=== PATIENT | female | born 1950 | race Caucasian/White ===

== ENCOUNTER 2022-09-21 22:53 | Emergency (ER) | payer MEDICARE, OTHER ==
--- NOTE | 2022-09-21 23:20 | ED Physician Documentation ---
PD HPI ABD PAIN - Stated complaint Stated Complaint: ABD PX - Chief complaint Chief Complaint: Abd Pain - History obtained from History obtained from: Patient - Additional information Additional information: HPI from patient. Patient complains of abdominal pain, predominantly periumbilical and to the left of the umbilicus. Pain began approximately 3 hours prior to arrival while she was lying in bed awake at home. Pain is constant without ameliorating factors. The pain is exacerbated with palpation. She was driven by spouse to the emergency department, and had an episode of nausea and vomiting on route, but at the time of this evaluation, she denies any nausea. She denies history of similar abdominal pain. Review of Systems Constitutional: denies: Fever GI: reports: Abdominal Pain, Nausea, Vomiting, Diarrhea (Chronic/recurrent (has seen two gastroenterologists for this problem already)). denies: Constipation, Hematemesis, Bloody / black stool : denies: Dysuria, Frequency, Hematuria PD PAST MEDICAL HISTORY - Past Medical History Past Medical History: Yes GI: GERD Other Past Medical History: restless leg syndrome/insomnia - Past Surgical History Past Surgical History: Yes Ortho: Hip replacement - Present Medications Home Medications: Ambulatory Orders Medication Instructions Recorded Confirmed Gabapentin [Neurontin] 400 mg PO BID 09/21/22 09/21/22 Omeprazole 20 mg PO DAILY 09/21/22 09/21/22 HYDROcod/ACETAM 5/325 [Coggon 5/325] 1 - 2 tablet PO Q6H PRN #14 tablet 09/22/22 Ondansetron Odt [Zofran Odt] 4 mg TL Q6H PRN #10 tablet 09/22/22 - Allergies Allergies/Adverse Reactions: Allergies Allergy/AdvReac Type Severity Reaction Status Date / Time Penicillins Allergy Hives Verified 09/21/22 23:09 Sulfa (Sulfonamide Allergy Hives Verified 09/21/22 23:09 Antibiotics) meloxicam AdvReac Unknown Verified 09/21/22 23:09 PD ED PE NORMAL - Vitals Vital signs reviewed: Yes - General General: Alert and oriented X 3, No acute distress, Well developed/nourished - HEENT HEENT: Moist mucous membranes - Neck Neck: Supple, no meningeal sign - Cardiac Cardiac: RRR, No murmur - Respiratory Respiratory: No respiratory distress, Clear bilaterally - Abdomen Abdomen: Normal bowel sounds, Soft, Non distended - Back Back: No CVA TTP - Derm Derm: No rash PD ED PE EXPANDED - Abdomen Abdomen: Tender to palpation, Epigastric, Periumbilical, Left abdomen. No: Rebound, Guarding Results - Vitals Vitals: Vital Signs - 24 hr 09/21/22 09/22/22 09/22/22 23:10 00:34 01:00 Temperature 37.1 C Heart Rate 83 77 71 Respiratory 16 16 16 Rate Blood Pressure 150/69 H 136/59 H 129/65 O2 Saturation 99 97 95 09/22/22 01:50 Temperature 36.9 C Heart Rate 70 Respiratory 15 Rate Blood Pressure 130/60 O2 Saturation 100 Oxygen O2 Source Room air - Labs Labs: Laboratory Tests 09/21/22 09/21/22 09/21/22 23:19 23:31 23:31 WBC 9.2 RBC 4.39 Hgb 13.2 Hct 41.3 MCV 94.1 MCH 30.1 MCHC 32.0 RDW 13.4 Plt Count 288 MPV 9.3 Neut # (Auto) 6.5 Lymph # (Auto) 2.0 [place] # (Auto) 0.6 Eos # (Auto) 0.0 Baso # (Auto) 0.0 Absolute Nucleated RBC 0.00 Nucleated RBC % 0.0 Sodium 139 Potassium 3.5 Chloride 104 Carbon Dioxide 27 Anion Gap 8.0 BUN 8 Creatinine 0.7 Estimated GFR (MDRD) 82 L Glucose 140 H Calcium 9.4 Total Bilirubin 0.5 AST 30 ALT 19 Alkaline Phosphatase 70 Total Protein 7.4 Albumin 4.5 Globulin 2.9 Albumin/Globulin Ratio 1.6 Lipase 32 Urine Color YELLOW Urine Clarity CLEAR Urine pH 6.5 Ur Specific [place] 1.020 Urine Protein NEGATIVE Urine Glucose (UA) NEGATIVE Urine Ketones NEGATIVE Urine Occult Blood NEGATIVE Urine Nitrite NEGATIVE Urine Bilirubin NEGATIVE Urine Urobilinogen 0.2 (NORMAL) Ur Leukocyte Esterase NEGATIVE Ur Microscopic Review NOT INDICATED Urine Culture Comments NOT INDICATED - Rads (name of study) CT A/P with IV contrast Relevant Findings:: Prelim report reviewed, See rad report PD Medical Decision Making - ED course Complexity details: reviewed results, re-evaluated patient, considered differential, d/w patient ED course: Labs ordered and results reviewed by me: CBC, ER abdominal panel, urinalysis. The results of these tests are all normal with the insignificant exceptions of a GFR of 82 (normal BUN and normal creatinine), and glucose of 140. The CT of the abdomen and pelvis shows, per radiology impression, "distention of the gallbladder without wall thickening and pericholecystic fat stranding." Also noted are diverticulosis without evidence of diverticulitis, no evidence of appendicitis, and mild right pelvocaliectasis in the right kidney without hydroureter. Results are reviewed with patient. Ultrasound is not available at this time (will not be available for several more hours). I performed a bedside ultrasound and on my ultrasound, there are no gallstones visualized. Negative sonographic Shields sign. Considering that her pain and tenderness are periumbilical, predominantly left of the umbilicus, and not involving the right upper quadrant nor epigastric area, as well as considering her normal LFTs and lipase, the finding on the CT regarding the distended gallbladder is likely an incidental finding rather than etiology of her symptoms. The cause of her symptoms is not apparent at this time, but further emergent testing is unlikely to yield a diagnosis or indicate specific treatment. Patient was given 4 mg of morphine IV early in her stay, and she reported good relief of her symptoms with this medication. On reevaluation, when we discussed the test results, she is in no apparent/acute distress, and declines further pain medication. Return precautions were discussed, and I instructed her to contact her primary care provider this morning when the office opens to arrange for next available appointment for reevaluation and possible further testing. She is given a take- home pack of Vicodin, and prescriptions for Vicodin and ondansetron are electronically submitted to her pharmacy of choice. I am prescribing a short course of short-acting opioid pain medication for this patient. I have reviewed the patients LAYER UP and no concerning findings were noted. I have discussed that the opioids are for short term therapy only, and will not be refilled from the ED. Departure - Departure Disposition: 01 Home, Self Care Clinical Impression: Abdominal pain Qualifiers: Abdominal location: periumbilical Qualified Code(s): R10.33 - Periumbilical pain Condition: Good Instructions: ED Abdominal Pain Female Non-Specific Abdominal Pain Follow-Up: RIAZ ALEX MD [Primary Care Provider] - Prescriptions: HYDROcod/ACETAM 5/325 [[place] 5/325] 1 - 2 tablet PO Q6H PRN #14 tablet PRN Reason: Pain Ondansetron Odt [Zofran Odt] 4 mg TL Q6H PRN #10 tablet PRN Reason: Nausea / Vomiting Comments: There were no concerning or diagnostic findings on the blood tests nor the urinalysis. The CT scan also did not reveal a cause of your symptoms, although it was noted that your gallbladder appears to be abnormally distended. There does not appear to be a gallstone on the CAT scan nor on my bedside ultrasound, and your liver function tests are all normal. The distended gallbladder might be an incidental finding. As we discussed, further tests might be helpful should your symptoms persist. Also noted on the CT scan was diverticulosis which is a common finding and would not explain your symptoms. I would recommend that you contact your primary care provider's office when they open later this morning to arrange for next available appointment for reevaluation. Certainly, if your symptoms worsen, or if you develop new/concerning signs/symptoms (such as fever, blood in vomit or stool, intractable abdominal pain that does not respond to the prescribed medication), you can always return to the emergency department. Prescriptions for ondansetron (antinausea medication) and Vicodin (narcotic/opiate pain medication) have been electronically submitted to the [facility] in [place]. I am prescribing a short course of narcotic pain medication for you. These are potentially dangerous and addictive medications that should be used carefully. These medications may constipate you. Take an oyfa-cul-qiyehzr stool softener (docusate) twice daily with plenty of water while taking these medications. If you go 24 hours without a bowel movement, take znpl-hio-kidqman miralax, per package instructions. Do not drink or drive while taking these medications. If you received narcotic or sedating medications while in the emergency department, do not drive for 24 hours. Store this medication in a safe, secure place and out of reach of children. It is a violation of federal law to give or sell this medication to another person or to use in a manner other than prescribed. The ED will not refill narcotic prescriptions, including prescriptions lost or stolen. To dispose of unwanted medications: 1. [facility] at [address] in [place] has a medication drop box. They accept prescription medications (in pill form) Thursday through Thursday 9:00 a.m. to 5:00 p.m. 2. [facility] [employer] accepts prescription medications (in pill form only) for disposal year round. Call for more information. 3. Contact the [facility] for the next [facility] sponsored prescription drug collection event. , [phone], or [phone]; Discharge Date/Time: 09/22/22 01:59
[2022-09-21 23:30] LABS: BILIRUBIN,URINE NEGATIVE (NEGATIVE); GLUCOSE, URINE (UA) NEGATIVE (NEGATIVE); KETONES,URINE (UA) NEGATIVE (NEGATIVE); LEUKOCYTE ESTERASE, URINE NEGATIVE (NEGATIVE); NITRITE,URINE NEGATIVE (NEGATIVE); OCCULT BLOOD,URINE NEGATIVE (NEGATIVE); PH,URINE 6.5 PH (5.0-7.5); PROTEIN,URINE NEGATIVE (NEGATIVE); UROBILINOGEN,URINE 0.2 (NORMAL) E.U./dL (NORMAL)
[2022-09-21 23:32] LABS: CLARITY,URINE CLEAR (CLEAR)
[2022-09-21] MEDS ORDERED: ONDANSETRON 4 MG/2 ML VIAL IVP STA (23:35)
[2022-09-21] MEDS ORDERED: MORPHINE 2 MG/ML CARPUJECT IVP STA (23:35)
[2022-09-21] MEDS ORDERED: SODIUM CHLORIDE 0.9% 500 ML IV STA (23:35)
[2022-09-21 23:40] LABS: BASOPHILS % (AUTO) 0.3 %; EOSINOPHILS % (AUTO) 0.1 %; HCT - HEMATOCRIT 41.3 % (37.0-47.0); HGB - HEMOGLOBIN 13.2 g/dL (12.0-16.0); LYMPHOCYTES % (AUTO) 21.8 %; MEAN CORPUSCULAR HEMOGLOBIN 30.1 pg (27.0-31.0); MEAN CORPUSCULAR VOLUME 94.1 fL (81.0-99.0); MEAN PLATELET VOLUME 9.3 fL (7.9-10.8); MONOCYTES # (AUTO) 0.6 10^3/uL (0.0-1.0); MONOCYTES % (AUTO) 6.8 %; NEUTROPHILS # (AUTO) 6.5 10^3/uL (1.5-6.6); NEUTROPHILS % (AUTO) 70.7 %; PLT - PLATELET COUNT 288 10^3/uL (130-450); RED BLOOD COUNT 4.39 10^6/uL (4.20-5.40); RED CELL DISTRIBUTION WIDTH 13.4 % (12.0-15.0); WHITE BLOOD COUNT 9.2 x10^3/uL (4.8-10.8)
[2022-09-21] MEDS ORDERED: iohexoL-300 100 ML VIAL ONE (23:42)
[2022-09-22 00:02] LABS: ALBUMIN 4.5 g/dL (3.2-5.5); ALBUMIN/GLOBULIN RATIO 1.6 (1.0-2.2); BILIRUBIN,TOTAL 0.5 mg/dL (0.2-1.0); CALCIUM 9.4 mg/dL (8.5-10.3); CREATININE 0.7 mg/dL (0.4-1.0); POTASSIUM 3.5 mmol/L (3.5-5.0); TOTAL PROTEIN 7.4 g/dL (6.7-8.2)
[2022-09-22] MEDS ORDERED: iohexoL-300 100 ML VIAL IVP ONE (00:29)
--- NOTE | 2022-09-22 01:06 | CT Report ---
PROCEDURE: ABDOMEN/PELVIS W INDICATIONS: abdominal pain CONTRAST: 100 ML OMNI 300 TECHNIQUE: After the administration of intravenous contrast, 5 mm thick sections acquired from the diaphragms to the symphysis. 5 mm thick coronal and sagittal reformats were acquired. For radiation dose reducti on, the following was used: automated exposure control, adjustment of mA and/or kV according to natividad ent size. COMPARISON: None. FINDINGS: Image quality: There is metallic streak artifact secondary to patient's right hip prosthesis limiting evaluation. Lung bases:There is mild dependent atelectasis bilaterally. Heart: Heart is normal in size. There are partially calcified bilateral breast implants. ABDOMEN: Liver: No mass lesion. Gallbladder:The gallbladder is distended with mild wall thickening and pericholecystic fat stranding . No calcified gallstones. Biliary ducts: No biliary ductal dilatation. Pancreas: No peripancreatic fat stranding or fluid to suggest acute pancreatitis. Spleen: Normal in size. Adrenal Glands: No adrenal nodules. Kidneys and Ureters:There is mild right pelvocaliectasis extending to the ureteropelvic junction. No calcified stone visualized. Stomach and Bowel: Stomach, small bowel loops, and colon are normal in caliber and wall thickness. A ppendix is within normal limits. There is extensive colonic diverticulosis without acute diverticulit is. Peritoneum: No abnormal intraperitoneal fluid. No free air. Ventral Wall: No hernia. Abdominal Nodes: No retroperitoneal or mesenteric adenopathy by size criteria. Vessels: Aorta and inferior vena cava are normal in size. PELVIS: Pelvic Organs: Unremarkable. Bladder: Unremarkable. Pelvic Nodes: No enlarged lymph nodes. Miscellaneous: No inguinal hernias. Bones: Visualized osseous structures demonstrate no suspicious lesions. IMPRESSION: 1. Distention of the gallbladder without wall thickening and pericholecystic fat stranding. The findi ngs are nonspecific but if there is clinical suspicion for cholecystitis, further evaluation may obta ined with ultrasound. 2. Mild right pelvocaliectasis in the right kidney without hydroureter. 3. No evidence of appendicitis. 4. Colonic diverticulosis without acute diverticulitis. Reviewed by: Kevin Iverson MD on 09/22/2022 1:05 AM PDT Approved by: Kevin Iverson MD on 09/22/2022 1:05 AM PDT Station ID: [id number]
[2022-09-22] MEDS ORDERED: HYDROcod/ACET 5/325 Prepack 4 PO STA (01:47)
[2022-09-22 01:59] VITALS: BP 130/60
== END 2022-09-22 01:59 | disposition home or self-care (01) ==
LOC: ED 22:53
DX: R10.33 Periumbilical pain (principal)
CPT/HCPCS: 36415; 74177; 80053; 81003; 83690; 85025; 96374; 99284; Q9967; 81001; 87086

== ENCOUNTER 2022-09-23 18:50 | Emergency (ER) | payer MEDICARE ==
[2022-09-23 19:16] LABS: BASOPHILS % (AUTO) 0.5 %; EOSINOPHILS # (AUTO) 0.1 10^3/uL (0.0-0.7); EOSINOPHILS % (AUTO) 1.3 %; HCT - HEMATOCRIT 39.4 % (37.0-47.0); HGB - HEMOGLOBIN 12.7 g/dL (12.0-16.0); LYMPHOCYTES # (AUTO) 2.6 10^3/uL (1.5-3.5); LYMPHOCYTES % (AUTO) 43.1 %; MEAN CORPUSCULAR HGB CONC 32.2 g/dL (32.0-36.0); MEAN CORPUSCULAR VOLUME 93.1 fL (81.0-99.0); MEAN PLATELET VOLUME 10.1 fL (7.9-10.8); MONOCYTES # (AUTO) 0.6 10^3/uL (0.0-1.0); MONOCYTES % (AUTO) 10.7 %; NEUTROPHILS # (AUTO) 2.6 10^3/uL (1.5-6.6); NEUTROPHILS % (AUTO) 44.2 %; PLT - PLATELET COUNT 323 10^3/uL (130-450); RED BLOOD COUNT 4.23 10^6/uL (4.20-5.40); RED CELL DISTRIBUTION WIDTH 13.5 % (12.0-15.0)
[2022-09-23 19:25] LABS: BILIRUBIN,URINE NEGATIVE (NEGATIVE); GLUCOSE, URINE (UA) NEGATIVE (NEGATIVE); KETONES,URINE (UA) NEGATIVE (NEGATIVE); LEUKOCYTE ESTERASE, URINE NEGATIVE (NEGATIVE); NITRITE,URINE NEGATIVE (NEGATIVE); OCCULT BLOOD,URINE NEGATIVE (NEGATIVE); PROTEIN,URINE NEGATIVE (NEGATIVE); UROBILINOGEN,URINE 0.2 (NORMAL) E.U./dL (NORMAL)
[2022-09-23 19:27] LABS: CLARITY,URINE CLEAR (CLEAR)
[2022-09-23] MEDS ORDERED: SUCRALFATE 1 GM/10 ML UDC PO STA (19:41)
[2022-09-23] MEDS ORDERED: PANTOPRAZOLE 40 MG VIAL IVP STA (19:41)
[2022-09-23] MEDS ORDERED: MAG HYDROX/AL HYDROX/SIMETH 30 ML UDC PO STA (19:41)
--- NOTE | 2022-09-23 19:42 | ED Physician Documentation ---
PD HPI ABD PAIN - Stated complaint Stated Complaint: ABD & BACK PX - Chief complaint Chief Complaint: Abd Pain - History obtained from History obtained from: Patient - Additional information Additional information: 72-year-old female presents to the emergency department with epigastric and left upper quadrant abdominal pain. She states that this started today at about 430 after eating butternut squash soup. She had similar symptoms on Thursday night. She was seen here, normal laboratory testing and no acute findings on CT scan. She was given Vicodin. Patient states that she does have a history of GERD. She states that she took meloxicam once, but developed bleeding, needed a transfusion so no longer takes that. Review of Systems Constitutional: denies: Fever, Chills GI: denies: Vomiting, Constipation, Diarrhea, Hematemesis, Bloody / black stool Skin: denies: Rash Musculoskeletal: denies: Neck pain, Back pain Neurologic: denies: Headache PD PAST MEDICAL HISTORY - Past Medical History Past Medical History: Yes GI: GERD Other Past Medical History: Restless Leg Syndrome - Past Surgical History Past Surgical History: Yes Ortho: Hip replacement - Present Medications Home Medications: Ambulatory Orders Medication Instructions Recorded Confirmed Gabapentin [Neurontin] 400 mg PO BID 09/21/22 09/23/22 Omeprazole 20 mg PO DAILY 09/21/22 09/23/22 Esomeprazole Magnesium [Nexium] 40 mg PO DAILY #30 cap 09/23/22 Famotidine [Pepcid] 20 mg PO BID #60 tablet 09/23/22 Sucralfate [Carafate] 1 gm PO ACHS #60 tablet 09/23/22 - Allergies Allergies/Adverse Reactions: Allergies Allergy/AdvReac Type Severity Reaction Status Date / Time Penicillins Allergy Hives Verified 09/21/22 23:09 Sulfa (Sulfonamide Allergy Hives Verified 09/21/22 23:09 Antibiotics) meloxicam AdvReac Unknown Verified 09/21/22 23:09 - Social History Does the pt smoke?: No Smoking Status: Never smoker Does the pt drink ETOH?: No Does the pt have substance abuse?: No - Immunizations Immunizations are current?: Yes - POLST Patient has POLST: No PD ED PE NORMAL - Vitals Vital signs reviewed: Yes - General General: Alert and oriented X 3, No acute distress, Well developed/nourished - HEENT HEENT: PERRL, Moist mucous membranes - Neck Neck: Supple, no meningeal sign - Cardiac Cardiac: RRR, Strong equal pulses - Respiratory Respiratory: No respiratory distress, Clear bilaterally - Abdomen Abdomen: Soft, Non distended, Other (Mildly tender to palpation epigastric and left upper quadrant. No peritoneal signs. No right upper quadrant tenderness) - Back Back: No CVA TTP, No spinal TTP - Derm Derm: Warm and dry, No rash - Extremities Extremities: No edema, No calf tenderness / cord - Neuro Neuro: Alert and oriented X 3 - Psych Psych: Normal mood, Normal affect Results - Vitals Vitals: Vital Signs - 24 hr 09/23/22 09/23/22 09/23/22 18:54 19:19 19:53 Temperature 36.6 C Heart Rate 76 72 Respiratory 16 16 Rate Blood Pressure 154/67 H 143/66 H 136/58 H O2 Saturation 98 96 Oxygen O2 Source Room air - Labs Labs: Laboratory Tests 09/23/22 09/23/22 09/23/22 19:05 19:09 19:39 WBC 6.0 RBC 4.23 Hgb 12.7 Hct 39.4 MCV 93.1 MCH 30.0 MCHC 32.2 RDW 13.5 Plt Count 323 MPV 10.1 Neut # (Auto) 2.6 Lymph # (Auto) 2.6 [place] # (Auto) 0.6 Eos # (Auto) 0.1 Baso # (Auto) 0.0 Absolute Nucleated RBC 0.00 Nucleated RBC % 0.0 Sodium 138 Potassium 3.9 Chloride 106 Carbon Dioxide 25 Anion Gap 7.0 BUN 5 L Creatinine 0.8 Estimated GFR (MDRD) 70 L Glucose 115 H Calcium 9.2 Total Bilirubin 0.6 AST 25 ALT 19 Alkaline Phosphatase 56 Total Protein 6.5 L Albumin 3.9 Globulin 2.6 Albumin/Globulin Ratio 1.5 Lipase 30 Urine Color YELLOW Urine Clarity CLEAR Urine pH 7.0 Ur Specific [place] 1.010 Urine Protein NEGATIVE Urine Glucose (UA) NEGATIVE Urine Ketones NEGATIVE Urine Occult Blood NEGATIVE Urine Nitrite NEGATIVE Urine Bilirubin NEGATIVE Urine Urobilinogen 0.2 (NORMAL) Ur Leukocyte Esterase NEGATIVE Ur Microscopic Review NOT INDICATED Urine Culture Comments NOT INDICATED PD Medical Decision Making - ED course Complexity details: reviewed results, re-evaluated patient, considered differential, d/w patient ED course: 72-year-old female presents to the emergency department for epigastric and left upper quadrant pain. She was seen here 2 days ago for same. No significant changes on her laboratory testing. LFTs are normal. No evidence of biliary disease acutely. Symptoms are consistent with gastritis GERD. Symptoms resolved with GI cocktail. She is on omeprazole at home, 20 mg daily, we will change to Nexium, add Pepcid and Carafate. Recommend outpatient endoscopy. Abdomen is soft, nontender nondistended on serial exam. Patient counseled regarding signs and symptoms for which I believe and urgent re-evaluation would be necessary. Patient with good understanding of and agreement to plan and is comfortable going home at this time This document was made in part using voice recognition software. While efforts are made to proofread this document, sound alike and grammatical errors may occur. Departure - Departure Disposition: 01 Home, Self Care Clinical Impression: GERD (gastroesophageal reflux disease) Qualifiers: Esophagitis presence: esophagitis presence not specified Qualified Code(s): K21.9 - Gastro-esophageal reflux disease without esophagitis Condition: Good Instructions: ED GERD Follow-Up: RIAZ ALEX MD [Primary Care Provider] - Within 1 week Surgical Care [Provider Group] Tucker Phelps MD [Provider Admit Priv/Credential] - [facility] [place] [Provider Group] Baudilio Blackmon MD [Provider Admit Priv/Credential] - Prescriptions: Sucralfate [Carafate] 1 gm PO ACHS #60 tablet Esomeprazole Magnesium [Nexium] 40 mg PO DAILY #30 cap Famotidine [Pepcid] 20 mg PO BID #60 tablet Comments: Please follow-up with your doctor for further care. It is recommended that you have an endoscopy. This can be arranged with the surgical clinic here, Dr. Phelps is another surgeon here who does endoscopies [place] the [place] as well. Your prescriptions were sent to [facility] in [place]. We will stop your current omeprazole and change you to Nexium, Pepcid and Carafate. Please follow a very bland diet as well. Please return if you worsen. Please avoid caffeine, alcohol, anti-inflammatory medications, spicy foods and fried foods Discharge Date/Time: 09/23/22 20:48
[2022-09-23 19:54] VITALS: BP 136/58
[2022-09-23 20:07] LABS: ALBUMIN 3.9 g/dL (3.2-5.5); ALBUMIN/GLOBULIN RATIO 1.5 (1.0-2.2); BILIRUBIN,TOTAL 0.6 mg/dL (0.2-1.0); CALCIUM 9.2 mg/dL (8.5-10.3); CREATININE 0.8 mg/dL (0.4-1.0); POTASSIUM 3.9 mmol/L (3.5-5.0); TOTAL PROTEIN 6.5 g/dL (6.7-8.2)
[2022-09-23] MEDS ORDERED: FAMOTIDINE 20 MG TABLET PO STA (20:35)
== END 2022-09-23 20:48 | disposition home or self-care (01) ==
LOC: ED 18:50
DX: K21.9 Gastro-esophageal reflux disease without esophagitis (principal)
CPT/HCPCS: 36415; 80053; 81003; 83690; 85025; 96374; 99283; A9270; 81001; 87086

== ENCOUNTER 2022-09-24 10:14 | Day surgery (SDC) | payer MEDICARE ==
[2022-09-24 11:10] LABS: BASOPHILS % (AUTO) 0.2 %; HCT - HEMATOCRIT 39.5 % (37.0-47.0); HGB - HEMOGLOBIN 12.8 g/dL (12.0-16.0); LYMPHOCYTES # (AUTO) 0.8 10^3/uL (1.5-3.5); LYMPHOCYTES % (AUTO) 8.4 %; MEAN CORPUSCULAR HEMOGLOBIN 30.4 pg (27.0-31.0); MEAN CORPUSCULAR HGB CONC 32.4 g/dL (32.0-36.0); MEAN CORPUSCULAR VOLUME 93.8 fL (81.0-99.0); MONOCYTES # (AUTO) 0.9 10^3/uL (0.0-1.0); MONOCYTES % (AUTO) 9.2 %; NEUTROPHILS # (AUTO) 8.2 10^3/uL (1.5-6.6); NEUTROPHILS % (AUTO) 81.9 %; PLT - PLATELET COUNT 256 10^3/uL (130-450); RED BLOOD COUNT 4.21 10^6/uL (4.20-5.40); RED CELL DISTRIBUTION WIDTH 13.4 % (12.0-15.0)
[2022-09-24 11:22] LABS: ALBUMIN 4.1 g/dL (3.2-5.5); ALBUMIN/GLOBULIN RATIO 1.5 (1.0-2.2); CALCIUM 9.4 mg/dL (8.5-10.3); CREATININE 0.8 mg/dL (0.4-1.0); POTASSIUM 3.8 mmol/L (3.5-5.0); TOTAL PROTEIN 6.9 g/dL (6.7-8.2)
--- NOTE | 2022-09-24 11:23 | ED Physician Documentation ---
History of Present Illness - Stated complaint Stated Complaint: ABD PX - Chief complaint Chief Complaint: Abd Pain - History obtained from History obtained from: Patient - Additonal information Additional information: 72-year-old woman with history of GI bleed related to meloxicam, has had diarrheal stools this year. Last colonoscopy about 5 years ago when she had the upper GI bleed. This is her third visit in 4 a few days for left upper quadrant pain. It is an episodic sharp pain that radiates to the back. Previous work- ups were negative, there was a concern for potential cholecystitis on CT done on the first visit but her pain is on the left and she is not tender in the right upper quadrant, she does not have any abnormal labs. Pain started again overnight last night. There is mild nausea related to the pain. PD PAST MEDICAL HISTORY - Past Medical History GI: GERD - Past Surgical History Past Surgical History: Yes Ortho: Hip replacement - Present Medications Home Medications: Ambulatory Orders Medication Instructions Recorded Confirmed Gabapentin [Neurontin] 400 mg PO BID 09/21/22 09/23/22 Omeprazole 20 mg PO DAILY 09/21/22 09/23/22 Esomeprazole Magnesium [Nexium] 40 mg PO DAILY #30 cap 09/23/22 Famotidine [Pepcid] 20 mg PO BID #60 tablet 09/23/22 Sucralfate [Carafate] 1 gm PO ACHS #60 tablet 09/23/22 - Allergies Allergies/Adverse Reactions: Allergies Allergy/AdvReac Type Severity Reaction Status Date / Time Penicillins Allergy Hives Verified 09/24/22 10:30 Sulfa (Sulfonamide Allergy Hives Verified 09/24/22 10:30 Antibiotics) meloxicam AdvReac Unknown Verified 09/24/22 10:30 - Social History Does the pt smoke?: No Smoking Status: Never smoker Does the pt drink ETOH?: No Does the pt have substance abuse?: No - Immunizations Immunizations are current?: Yes - POLST Patient has POLST: No PD ED PE NORMAL - Vitals Vital signs reviewed: Yes - General General: Alert and oriented X 3, No acute distress - HEENT HEENT: PERRL, EOMI - Neck Neck: Supple, no meningeal sign, No bony TTP - Cardiac Cardiac: RRR, No murmur - Respiratory Respiratory: No respiratory distress, Clear bilaterally - Abdomen Abdomen: Normal bowel sounds, Soft, Other (Very mild left upper quadrant tenderness. No shingles rash in that area nor on the left thorax.) - Back Back: No CVA TTP, No spinal TTP - Derm Derm: Normal color, Warm and dry - Extremities Extremities: No edema, No calf tenderness / cord - Neuro Neuro: Alert and oriented X 3, Normal speech Results - Vitals Vitals: Vital Signs - 24 hr 09/24/22 09/24/22 09/24/22 10:25 13:04 15:27 Temperature 37.1 C Heart Rate 99 89 67 Respiratory 16 16 16 Rate Blood Pressure 141/56 H 125/70 161/70 H O2 Saturation 100 94 96 Oxygen O2 Source Room air - EKG (time done) 1107 EKG releavant findings:: EKG personally interpreted by author of this note. Relevant findings are: Rate: Rate (enter#) (86) Rhythm: NSR [place]: Normal Intervals: Normal [place] QRS: Normal Ischemia: Normal ST segments - Labs Labs: Laboratory Tests 09/24/22 09/24/22 09/24/22 11:05 11:05 11:05 WBC 10.0 RBC 4.21 Hgb 12.8 Hct 39.5 MCV 93.8 MCH 30.4 MCHC 32.4 RDW 13.4 Plt Count 256 MPV 9.0 Neut # (Auto) 8.2 H Lymph # (Auto) 0.8 L [place] # (Auto) 0.9 Eos # (Auto) 0.0 Baso # (Auto) 0.0 Absolute Nucleated RBC 0.00 Nucleated RBC % 0.0 Sodium 139 Potassium 3.8 Chloride 104 Carbon Dioxide 27 Anion Gap 8.0 BUN 6 Creatinine 0.8 Estimated GFR (MDRD) 70 L Glucose 106 H Calcium 9.4 Total Bilirubin 2.0 H AST 112 H ALT 82 H Alkaline Phosphatase 84 Troponin I High Sens 5.6 Total Protein 6.9 Albumin 4.1 Globulin 2.8 Albumin/Globulin Ratio 1.5 Lipase 32 - Rads (name of study) Ultrasound RUQ Relevant Findings:: Final report received (Ultrasound of the gallbladder demonstrates sludge and potentially a polyp with mild gallbladder wall thickening and positive sonographic Shields sign and fatty liver. Common bile duct at 10 mm is dilated.), EMP independent interpretation of test MRCP demonstrates cholecystitis, potential dilation of the CHD Relevant Findings:: Final report received, EMP independent interpretation of test PD Medical Decision Making - ED course ED course: 72-year-old woman presents with recurrent abdominal pain of a few days duration. On this visit, her bilirubin and transaminases are mildly elevated which is new from her prior. CMP is otherwise unremarkable. CBC showing borderline leukocytosis at 10.0. An ultrasound was done demonstrating mild signs of cholecystitis and a dilated common bile duct and MRCP was ordered. She was pain-free after 4 mg morphine. MRCP Demonstrated cholecystitis without choledocholithiasis. There was a concern about potential dilation of the common hepatic duct. The findings were discussed with Dr. Myriam Figueroa, our on-call surgeon approximately 4:30 PM and she will see the patient. She did not recommend antibiosis in the interim. Departure - Departure Disposition: ED Transfer to [facility] Clinical Impression: Cholecystitis Condition: Good Record reviewed to determine appropriate education?: Yes
[2022-09-24] MEDS ORDERED: MORPHINE 2 MG/ML CARPUJECT IVP STA (11:26)
[2022-09-24] MEDS ORDERED: GADOBUTROL 7.5 MMOL/7.5 ML VIAL ONE (12:40)
--- NOTE | 2022-09-24 12:52 | Ultrasound Report ---
PROCEDURE: Abdomen Limited INDICATIONS: abd pain, abn liver enzymes TECHNIQUE: Real-time focused scanning was performed of the abdomen, with image documentation. COMPARISON: CT of abdomen and pelvis dated 09/22/2022 FINDINGS: Liver: Liver is normal in size and hyperechoic in echotexture. Gallbladder: Sludge material is seen in dependent portion of gallbladder lumen. Mild gallbladder wall thickening is seen measures up to 3.7 mm in thickness. No pericholecystic fluid. No sonographic Murp hy's sign. Possible small polyp is seen near neck of gallbladder.. Biliary ducts: Intrahepatic bile ducts are mildly dilated. Extrahepatic bile duct caliber measures 9 .5 mm. Normal is 6-7 mm or less in diameter, or 10 mm or less post-cholecystectomy. Pancreas: Visualized portions of the pancreas are sonographically normal. Right kidney: Normal in size and echotexture. Right kidney measures 9.8 cm long. No hydronephrosis o r nephrolithiasis. No solid masses. No complex renal cystic lesions which require follow-up. Aorta: Visualized aorta is normal in caliber at less than 3 cm. IVC: Intrahepatic inferior vena cava is patent. Miscellaneous: No free abdominal fluid. IMPRESSION: 1. Sludge material in gallbladder lumen. Suggestion of small polyp in neck of gallbladder. Mild gallb ladder wall thickening with positive sonographic consistent with acute cholecystitis. 2. Hepatic steatosis. No discrete hepatic lesion. Intra and extrahepatic biliary ductal dilatation. N o gross choledocholithiasis. Reviewed by: Balbir Haro MD on 09/24/2022 12:51 PM PDT Approved by: Balbir Haro MD on 09/24/2022 12:51 PM PDT Station ID: [id number]
--- NOTE | 2022-09-24 16:24 | MRI Report ---
PROCEDURE: MRCP W/WO INDICATIONS: abd pain, biliary obstruction CONTRAST: GADAVIST 4.8ML TECHNIQUE: Coronal ultra fast SE through the abdomen, axial 2-D spoiled GE in- and [id number], and breath-hold T2 FSE with fat saturation through the biliary system and pancreas. Oblique coronal and axial thin- slice ultra fast SE, radial thick-slab ultra fast SE centered on the extrahepatic bile ducts. COMPARISON: Ultrasound 09/24/2022, CT 09/22/2022 FINDINGS: Image quality: Excellent. Pancreas and biliary system: The gallbladder is distended, with a focally thickened wall. Filling def ect within the neck of the gallbladder measuring 7 mm (2/12). Common bile duct measures 5 mm, without filling defect on the 2-D MRCP images, confirmed with axial T2 images. 7 mm narrowing of the common hepatic duct at the hilum (series 13 / image 6). No pancreatic ductal dilation. Other solid organs: Moderate hepatic steatosis. Remaining solid organs are unremarkable. Nodes and vessels: No retroperitoneal or mesenteric adenopathy by size criteria. Aorta and inferior vena cava are normal in size. Bowel and peritoneum: Unenhanced bowel loops are normal in caliber. No free fluid. Lung bases: No basal pleural effusions. Heart size is normal. Bones and soft tissues: No ventral hernias. Bone marrow is of normal overall signal. IMPRESSION: Acute cholecystitis, likely caused by an obstructing stone at the gallbladder neck. No evidence of choledocholithiasis. Focal narrowing of the common hepatic duct measuring 7 mm. Findings could be related to the distended gallbladder neck within this region. Mass such as cholangiocarcinoma or stricture is not entirely ex cluded. Consider following treatment of acute cholecystitis. Reviewed by: Abdirahman Braxton on 09/24/2022 4:22 PM PDT Approved by: Abdirahman Braxton on 09/24/2022 4:22 PM PDT Station ID: [id number]
[2022-09-24] MEDS ORDERED: fentaNYL 100 MCG/2 ML VIAL ONE ×2 (17:43→19:25)
[2022-09-24] MEDS ORDERED: LIDOCAINE-PF 2% 10 ML AMP SUBQ ONE (17:44)
[2022-09-24] MEDS ORDERED: PROPOFOL 200 MG/20 ML VIAL IVP ONE (17:44)
[2022-09-24] MEDS ORDERED: ROCURONIUM 50 MG/5 ML VIAL ONE (17:45)
--- NOTE | 2022-09-24 17:46 | SURGERY HX AND PHYSICAL(T) ---
Surgical History & Physical - Chief Complaint/HPI Chief Complaint: abdominal pain History of Present Illness: This is a very pleasant 72-year-old lady who presents to the emergency department for the third time in 4 days. On Thursday evening, the patient began having sharp abdominal pain in the left upper quadrant. She presented to the ED and although her imaging was concerning for cholecystitis, the location of her pain and normal laboratory results were reassuring. It was felt that a gastric ulcer was a more likely underlying cause of her pain. Her pain improved with a single dose of morphine and she was discharged home. Yesterday evening, the patient again had pain and return to the emergency department. At that time she was given a GI cocktail with mild improvement in symptoms and was again discharged home. Today, the patient had worsening abdominal pain again and return to the emergency department. She describes the pain as very sharp and colicky in nature. The pain makes her double over and is associated with nausea. On Thursday she did have a single episode of vomiting which she attributed to pain. There was no blood in the vomit. She denies any fevers or chills.She denies any chest pain or shortness of breath. Prior to this last week, she has not had similar pain in the past. The patient has a remote history of GI bleeding related to meloxicam several years ago and due to this she avoids NSAID medications. - PMH/PSH/Social Hx Neurological History: Other (Restless leg syndrome) Gastrointestinal: GERD, GI bleed (NSAID related, approximately 5 years ago) Musculoskeletal: Osteoarthritis Orthopedic: Hip replacement (Right), Rotator cuff repair (Right) PSH Other: The patient is a retired RN Smoking Status: Never smoker Does the pt drink ETOH?: No Does the pt have substance abuse?: No - Family Hx Family Hx: Unremarkable - Home Meds and Allergies Home Medications: Gabapentin [Neurontin] 400 mg PO BID 09/21/22 Omeprazole 20 mg PO DAILY 09/21/22 Allergies/Adverse Reactions: Allergies Allergy/AdvReac Type Severity Reaction Status Date / Time Penicillins Allergy Hives Verified 09/24/22 10:30 Sulfa (Sulfonamide Allergy Hives Verified 09/24/22 10:30 Antibiotics) meloxicam AdvReac Unknown Verified 09/24/22 10:30 - Review of Systems Constitutional: Other (A complete 10 point review of symptoms is otherwise negative except for that noted in HPI and PMH.) - Vital Signs Heart Rate: 94 Blood Pressure: 146/84 Temperature: 37.1 C Respiratory Rate: 16 O2 Saturation: 94 Weight (kg): 48.081 kg Height: 1.55 m - Physical Exam Comments/Other: GEN: No acute distress, appears stated age, alert and oriented, petite HEENT: NCAT, MMM, EOMI NEURO: CN II-XII grossly intact, no obvious focal deficits CV: RRR, no murmer appreciated PULM: CTAB, no wheezes appreciated ABD: soft, mild tenderness to deep palpation in the right upper quadrant, mild l eft upper quadrant tenderness to palpation, no rebound or guarding, no Shields sign on physical exam CIRCULATORY: no clubbing, cyanosis, or edema SKIN: no lesions appreciated LYMPH: no obvious lymphadenopathy MSK: 4/4 strength in all extremities PSYCH: Affect is appropriate - Patient Review Patient Review: Problems were reviewed with the patient during this visit. Medications were reviewed with the patient during this visit. Allergies were reviewed this patient during this visit. Pertinent Tests Reviewed: All pertitent test for this patient were reviewed. - Assessment & Plan Assessment and Plan: This is a 72-year-old female with: 1. Acute calculus cholecystitis -The patient's ultrasound demonstrates a thickened gallbladder wall without any pericholecystic fluid. There is sludge present and stones within the gallbladder. I personally reviewed the images and report from the study -The patient's ultrasound is consistent with this diagnosis. She also has a mildly elevated white blood cell count. She reportedly had a positive sonographic Shields sign, although she does not have a positive Shields sign on physical exam for me today. -I discussed the natural history of acute cholecystitis with the patient. We also discussed the risks, benefits, and alternatives of laparoscopic cholecystectomy with cholangiogram and possible open procedure. We discussed surgical risks including bleeding, infection, damage to surrounding structures, and the possible need for further surgeries or procedures.. We also discussed the intraoperative and postoperative plan including the possible need for drain placement and possibility of an open procedure. The patient voiced understanding, her questions were answered, and she wished to proceed with surgery. A consent was signed by the patient. -The patient's spouse and daughter were also at bedside. Their questions were answered as well, and all parties expressed comfort with the plan of care. -The patient has not had anything to eat or drink today. -IV antibiotics will be ordered for the time of surgery. -I anticipate possible discharge home tonight or tomorrow morning 2. Hyperbilirubinemia, elevated liver enzymes -MRCP indicates a possible area of narrowing of the common hepatic duct. There is no obvious stone within the duct. I personally reviewed the images and report from the study. I plan to perform an intraoperative cholangiogram. I did discuss with the patient the possibility that she may require additional procedures if a stone is identified within the duct. 3. Restless leg syndrome, GERD -We will continue the patient's home medications after surgery. The patient will need to follow-up with me in clinic in 2 weeks.
[2022-09-24] MEDS ORDERED: ONDANSETRON 4 MG/2 ML VIAL IVP PRN ×2 (17:56→19:24)
[2022-09-24] MEDS ORDERED: MORPHINE 2 MG/ML CARPUJECT IVP PRN ×2 (17:56→19:24)
[2022-09-24] MEDS ORDERED: ceFAZolin 2 GM in SODIUM CHLORIDE 0.9% 100ML 100 ML IV STA (18:05)
[2022-09-24] MEDS ORDERED: metroNIDAZOLE 500 MG/100 ML 500 MG/100 ML BAG IV ONE (18:07)
[2022-09-24] MEDS ORDERED: MIDAZOLAM 2 MG/2 ML VIAL ONE (18:07)
--- NOTE | 2022-09-24 18:08 | ANESTHESIA ---
Pre-Anesthesia VS, & Labs - Diagnosis cholecystitis - Procedure laparoscopic cholecystecomy, IOC Vital Signs: Temp Pulse Resp BP Pulse Ox O2 Flow Rate 37.1 C 94 16 146/84 H 94 09/24/22 17:55 09/24/22 17:55 09/24/22 17:55 09/24/22 17:55 09/24/22 17:55 Height: 5 ft 1 in Weight (kg): 48.081 kg Body Mass Index: 20.0 BMI Classification: Normal - NPO >8 hours - Is Patient ?: No - Lab Results Current Lab Results: Laboratory Tests 09/24/22 11:05: Troponin I High Sens 5.6 09/24/22 11:05: Sodium 139, Potassium 3.8, Chloride 104, Carbon Dioxide 27, An ion Gap 8.0, BUN 6, Creatinine 0.8, Estimated GFR (MDRD) 70 L, Glucose 106 H, Calcium 9.4, Total Bilirubin 2.0 H, AST 112 H, ALT 82 H, Alkaline Phosphatase 84, Total Protein 6.9, Albumin 4.1, Globulin 2.8, Albumin/Globulin Ratio 1.5, Lipase 32 09/24/22 11:05: WBC 10.0, RBC 4.21, Hgb 12.8, Hct 39.5, MCV 93.8, MCH 30.4, MCHC 32.4, RDW 13.4, Plt Count 256, MPV 9.0, Neut # (Auto) 8.2 H, Lymph # (Auto) 0.8 L, Webster # (Auto) 0.9, Eos # (Auto) 0.0, Baso # (Auto) 0.0, Absolute Nucleated RBC 0.00, Nucleated RBC % 0.0 Lab results reviewed: Yes Fish Bones: 09/24/22 11:05 09/24/22 11:05 Home Medications and Allergies Active Medications Sodium Chloride (Normal Saline 0.9%) 1,000 mls @ 125 mls/hr IV .Q8H DAYSI Cefazolin Sodium 2 gm/ Sodium (Chloride) 100 mls @ 200 mls/hr IV ONCE STA Stop: 09/24/22 18:34 Metronidazole (Flagyl 500 Mg/100 Ml) 500 mg in 100 mls @ 100 mls/hr IV ONCE DAYSI Morphine Sulfate (Morphine 2 Mg/Ml Carpuject) 4 mg IVP Q2HR PRN PRN Reason: PAIN >8 Ondansetron HCl (Ondansetron 4 Mg/2 Ml Vial) 4 mg IVP Q6HR PRN PRN Reason: Nausea / Vomiting Gabapentin [Neurontin] 400 mg PO BID 09/21/22 Omeprazole 20 mg PO DAILY 09/21/22 Allergies/Adverse Reactions: Allergies Allergy/AdvReac Type Severity Reaction Status Date / Time Penicillins Allergy Hives Verified 09/24/22 10:30 Sulfa (Sulfonamide Allergy Hives Verified 09/24/22 10:30 Antibiotics) meloxicam AdvReac Unknown Verified 09/24/22 10:30 Anes History & Medical History - Anesthetic History Anesthesia Complications: reports: No previous complications Family history of Anesthesia Complications: Denies Family history of Malignant Hyperthermia: Denies - Medical History Cardiovascular: reports: Murmur Gastrointestinal: reports: GERD, GI bleed (NSAID related, approximately 5 years ago) Neuro: reports: Other (Restless leg syndrome) Musculoskeletal: reports: Osteoarthritis Smoking Status: Never smoker History of Cancer?: No - Surgical History Orthopedic: reports: Hip replacement (Right), Rotator cuff repair (Right) Other Past Surgical History: The patient is a retired RN Exam General: Alert, Oriented x3, Cooperative Dental: WNL Mouth Openin Fingerbreadth Mallampati classification: III Thyromental Distance: 4-6 cm Respiratory: Lungs clear, Normal breath sounds, No respiratory distress Cardiovascular: Regular rate, Other (faint systolic murmur) Neurological: Normal speech Mental/Cognitive Status: Alert/Oriented X3, Normal for patient Cognitive Status: Within normal limits Plan Anesthesia Type: General Consent for Procedure(s) Verified and Reviewed: Yes Code Status: Attempt Resuscitation ASA classification: 2-Mild systemic disease Is this case an emergency?: Yes
[2022-09-24] MEDS ORDERED: LIDOCAINE MPF 2%-EPI 1:200000 20 ML VIAL ONE (18:12)
[2022-09-24] MEDS ORDERED: BUPIVACAINE 0.5% PF 30 ML VIAL ONE (18:12)
[2022-09-24] MEDS ORDERED: CEFAZOLIN 2G/50ML 0.9% NS 2 GM/50 ML BAG IV ONE (18:20)
[2022-09-24] MEDS ORDERED: ceFAZolin 1 GM VIAL ONE (18:24)
[2022-09-24] MEDS ORDERED: ONDANSETRON 4 MG/2 ML VIAL ONE ×2 (18:49→20:53)
[2022-09-24] MEDS ORDERED: DEXAMETHASONE 4 MG/ML VIAL ONE (18:49)
[2022-09-24] MEDS ORDERED: ACETAMINOPHEN 1,000 MG/100 ML 1,000 MG/100 ML BAG IV ONE (18:57)
[2022-09-24] MEDS ORDERED: LIDOCAINE MPF 2%-EPI 1:200000 20 ML VIAL SUBQ ONE (19:06)
[2022-09-24] MEDS ORDERED: BUPIVACAINE 0.5% PF 30 ML VIAL SUBQ ONE (19:06)
[2022-09-24] MEDS ORDERED: fentaNYL 100 MCG/2 ML VIAL IVP PRN (19:24)
[2022-09-24] MEDS ORDERED: METOCLOPRAMIDE 10 MG/2 ML VIAL IVP PRN (19:24)
[2022-09-24] MEDS ORDERED: ATROPINE ABBOJECT 1 MG/10 ML SYRINGE IVP PRN (19:24)
[2022-09-24] MEDS ORDERED: ePHEDrine 50 MG/ML VIAL IVP PRN (19:24)
[2022-09-24] MEDS ORDERED: NALOXONE 0.4 MG/ML VIAL IVP PRN (19:24)
[2022-09-24] MEDS ORDERED: HYDROmorphone 0.5 MG/0.5 ML SYRINGE IVP PRN (19:24)
[2022-09-24] MEDS ORDERED: SUGAMMADEX 200 MG/2 ML VIAL IVP ONE (19:26)
[2022-09-24] MEDS ORDERED: GADOBUTROL 7.5 MMOL/7.5 ML VIAL IVP ONE (19:46)
[2022-09-24] MEDS ORDERED: LACTATED RINGERS 1,000 ML IV SCH (20:00)
[2022-09-24] MEDS ORDERED: LACTATED RINGERS 1,000 ML IV ONE ×2 (20:07→20:51)
--- NOTE | 2022-09-24 20:26 | OPERATIVE REPORT ---
Operative Report - General Procedure Date: 09/24/22 Planned Procedure: Laparoscopic cholecystectomy with cholangiogram, possible open Pre-Op Diagnosis: Acute cholecystitis Procedure Performed: Laparoscopic cholecystectomy Post Op Diagnosis: Acute cholecystitis - Procedure Note Primary Surgeon: Dr. Myriam Figueroa Anesthesia Provider: Bro Busby CRNA Anesthesia Technique: General ET tube, Local Pathology: Gallbladder and contents Estimated Blood Loss (mL): 30 Indications: This is a 72-year-old female who has been in the emergency department 3 times in the last 4 days for left upper quadrant abdominal pain. Imaging today is consistent with acute cholecystitis and she has a mildly elevated white count and mildly elevated liver enzymes. She was seen and evaluated by myself in the emergency department. We discussed the risks, benefits, and alternatives of laparoscopic cholecystectomy including bleeding, infection, damage to surrounding structures, and the possible need for further surgeries or procedures. The patient voiced understanding, her questions were answered, and she wished to proceed. A consent was signed by the patient in the emergency department. Findings: 1.Acute cholecystitis 2. critical view obtained Complications: None - Other Other Information/Narrative: The patient was brought to the operative suite and placed in the supine position. General endotracheal anesthesia was induced. Preoperative antibiotics were given. A preop surgical timeout was performed. Local anesthetic was injected into the skin and subcutaneous tissues just inferior to the umbilicus. An 11 blade scalpel was used to make a 5 mm transverse skin incision in this location. Next, a hemostat was used to spread the tissues down to the level of the fascia and a Shubham clamp was used to grasp and elevate the umbilical stalk. A Varess needle was used to gain access to the peritoneal space. Low flow insufflation revealed low pressures and then high flow insufflation was undertaken to 15 mmHg. Next, the Varess needle was removed and a 5 mm laparoscopic port was inserted in this location. Through this port, a 5 mm 30 degree laparoscope was inserted. On inspection of the abdomen no injury was caused on entry. Next, the patient was placed in reverse Trendelenburg and rotated slightly to the left. Two 5 mm ports were inserted in the right upper quadrant, one in the anterior axillary line and the other in the midclavicular line. Also, a 12 mm port was inserted in the subxiphoid region. All ports were placed by first anesthetizing the skin and subcutaneous tissues with local anesthetic, then by making an appropriate length incision with an 11 blade scalpel, and finally by placing the port under direct laparoscopic vision. Once the ports were in place, a ratcheted, toothed grasper was used to elevate the fundus of the gallbladder toward the patient's right shoulder. There were edematous adhesions in the right upper quadrant between the duodenum and the gallbladder. These were carefully taken down with blunt dissection. Next, the peritoneum was incised starting at the hilum of the gallbladder and working toward the fundus along the gallbladder liver interface on the medial and lateral aspects of the gallbladder. Next, attention was returned to the hilum of the gallbladder. The alveolar tissues in this region were taken down with blunt and sharp dissection with electrocautery taking great care not to cauterize though any tissue I could not easily see through. Two ductal structures were isolated and skeletonized such that each ductal structure could be visualized with liver present on either side. The cystic plate was also developed. At this time, it was felt that a critical view of safety had been obtained. The cystic duct was felt to be too small to perform a cholangiogram. Two clips were placed proximally on the cystic duct. The cystic duct and cystic artery were divided using laparoscopic scissors between the clips. Next the gallbladder was dissected off of the liver bed. Once it was completely freed, the gallbladder was placed in an Endo Catch bag and removed through the epigastric port. The epigastric port was replaced and suction and irrigation were used to remove any fluid from the right upper quadrant. This was done until the fluid returned was clear. Next, the laparoscopic ports were removed under direct laparoscopic vision and the abdomen was deflated. Then, the fascia was closed at the epigastric port using an 0 Vicryl in a [id number] fashion. Next, the skin edges were reapproximated with 4-0 Monocryl in an interrupted subcuticular fashion. A sterile dressing of skin glue was placed. The patient tolerated the procedure well. The patient was extubated in the operating room and transferred to the recovery room in stable condition. There were no complications.
[2022-09-24] MEDS ORDERED: oxyCODONE 5 MG TABLET PO PRN (20:30)
[2022-09-24] MEDS ORDERED: MORPHINE 2 MG/ML CARPUJECT ONE (20:33)
--- NOTE | 2022-09-24 20:37 | ANESTHESIA POST OP EVALUATION ---
Anesthesia Post Eval - Post Anesthesia Eval Vitals: Last Vital Signs Temp 36.7 C 09/24/22 20:07 Pulse 90 09/24/22 20:30 Resp 19 09/24/22 20:30 BP 145/61 H 09/24/22 20:30 Pulse Ox 95 09/24/22 20:30 O2 Flow Rate CV Function Including HR & BP: Stable Pain Control: Satisfactory (morhphine in PACU prior to [facility] transfer) Nausea & Vomiting: Negative Mental Status: Baseline (drowsy) Respiratory Status: Airway Patent Hydration Status: Satisfactory Anesthesia Complications: None
[2022-09-24] MEDS: SODIUM CHLORIDE 0.9% 1,000 ML IV SCH ×2 (22:25→23:36)
[2022-09-25 04:18] VITALS: BP 102/48
[2022-09-25 07:37] LABS: ALBUMIN 3.3 g/dL (3.2-5.5); ALBUMIN/GLOBULIN RATIO 1.2 (1.0-2.2); BILIRUBIN,TOTAL 1.1 mg/dL (0.2-1.0); CALCIUM 8.6 mg/dL (8.5-10.3)
== END 2022-09-25 07:14 | disposition home or self-care (01) ==
LOC: ED 10:14 → SDS 17:30 → MS3 20:32 → SDS 09-25 07:14
PROVIDERS: ATTEND Surgery
PROC: 0FT44ZZ Resection of Gallbladder, Percutaneous Endoscopic Approach (ICD-10-PCS; principal; 2022-09-24 18:30)
DX: K80.12 Calculus of gallbladder with acute and chronic cholecystitis without obstruction (principal); K21.9 Gastro-esophageal reflux disease without esophagitis; E80.6 Other disorders of bilirubin metabolism; R74.8 Abnormal levels of other serum enzymes; G25.81 Restless legs syndrome
CPT/HCPCS: 36415; 47562; 74183; 76705; 80053; 83690; 84484; 85025; 93005; 96374; 99285; A9270; A9585; C1758; J0131; J7120; Q9965

== ENCOUNTER 2022-09-28 03:16 | Observation (INO) | payer MEDICARE ==
[2022-09-28] MEDS ORDERED: oxyCODONE 5 MG TABLET PO STA (04:13)
--- NOTE | 2022-09-28 04:33 | ED Physician Documentation ---
PD HPI ABD PAIN - Stated complaint Stated Complaint: FEMALE - Chief complaint Chief Complaint: Abd Pain - History obtained from History obtained from: Patient - Additional information Additional information: HPI from patient. Patient's chief complaint is sensation of constipation. Patient was treated and released from this emergency department on September 21, returned September 23, and again September 24. All 3 of these visits were related to abdominal pain complaints, which culminated in laparoscopic cholecystectomy performed September 24. Patient says she has had adequate pain control with the prescribed pain medication (oxycodone), although since last night, the pain seems to have become slightly more intense and more diffuse than previously, although she says it is still predominantly limited to the right upper quadrant.She says that for the past 2 days, she has felt some degree of abdominal distention and she feels that she has had minimal stool output. She does has been using Colace, Dulcolax, and has used multiple enemas over past 2 days. She says she still has minimal stool output, and the stool she has been able to produce has been liquid stool. Review of Systems Constitutional: denies: Fever, Chills, Sweats Cardiac: reports: Reviewed and negative Respiratory: reports: Reviewed and negative GI: reports: Abdominal Pain, Constipation. denies: Nausea, Vomiting, Bloody / black stool PD PAST MEDICAL HISTORY - Past Medical History Cardiovascular: Murmur Neuro: Other (Restless leg syndrome) GI: GERD, GI bleed (NSAID related, approximately 5 years ago) Musculoskeletal: Osteoarthritis - Past Surgical History Past Surgical History: Yes Ortho: Hip replacement (Right), Rotator cuff repair (Right) - Present Medications Home Medications: Ambulatory Orders Medication Instructions Recorded Confirmed Gabapentin [Neurontin] 400 mg PO BID 09/21/22 09/23/22 Omeprazole 20 mg PO DAILY 09/21/22 09/23/22 Esomeprazole Magnesium [Nexium] 40 mg PO DAILY #30 cap 09/23/22 Famotidine [Pepcid] 20 mg PO BID #60 tablet 09/23/22 Sucralfate [Carafate] 1 gm PO ACHS #60 tablet 09/23/22 oxyCODONE [Roxicodone] 5 mg PO Q4H PRN #15 tablet 09/24/22 - Allergies Allergies/Adverse Reactions: Allergies Allergy/AdvReac Type Severity Reaction Status Date / Time Penicillins Allergy Hives Verified 09/28/22 04:06 Sulfa (Sulfonamide Allergy Hives Verified 09/28/22 04:06 Antibiotics) meloxicam AdvReac Unknown Verified 09/28/22 04:06 - Social History Does the pt smoke?: No Smoking Status: Never smoker Does the pt drink ETOH?: No Does the pt have substance abuse?: No - Immunizations Immunizations are current?: Yes - POLST Patient has POLST: No PD ED PE NORMAL - Vitals Vital signs reviewed: Yes - General General: Alert and oriented X 3, Well developed/nourished, Other (Patient appears to be in mild to moderate painful distress at times during H&P.) - HEENT HEENT: Moist mucous membranes - Cardiac Cardiac: RRR - Respiratory Respiratory: No respiratory distress, Clear bilaterally - Abdomen Abdomen: Soft, Non distended, Other (Tender to palpation diffusely although there is relative sparing of the left lower quadrant and the tenderness is most severe in the right upper quadrant.) - Derm Derm: Normal color, Warm and dry Results - Vitals Vitals: Vital Signs - 24 hr 09/28/22 09/28/22 09/28/22 03:40 04:05 05:49 Temperature 36.8 C Heart Rate 83 82 85 Respiratory 15 15 16 Rate Blood Pressure 142/68 H 157/69 H 136/64 H O2 Saturation 100 96 94 09/28/22 08:00 Temperature Heart Rate 82 Respiratory 20 Rate Blood Pressure 133/104 H O2 Saturation 95 Oxygen O2 Source Room air - Labs Labs: Laboratory Tests 09/28/22 09/28/22 05:08 05:08 WBC 8.8 RBC 3.74 L Hgb 11.7 L Hct 34.8 L MCV 93.0 MCH 31.3 H MCHC 33.6 RDW 12.9 Plt Count 280 MPV 9.3 Neut # (Auto) 6.9 H Lymph # (Auto) 0.9 L [place] # (Auto) 0.9 Eos # (Auto) 0.0 Baso # (Auto) 0.0 Absolute Nucleated RBC 0.00 Nucleated RBC % 0.0 Sodium 139 Potassium 4.4 Chloride 103 Carbon Dioxide 26 Anion Gap 10.0 BUN 7 Creatinine 0.7 Estimated GFR (MDRD) 82 L Glucose 80 Calcium 8.8 Total Bilirubin 1.7 H AST 38 ALT 27 Alkaline Phosphatase 64 Total Protein 6.8 Albumin 3.3 Globulin 3.5 Albumin/Globulin Ratio 0.9 L Lipase 27 - Rads (name of study) CT A/P with IV contrast Relevant Findings:: Prelim report reviewed, See rad report PD Medical Decision Making - ED course Complexity details: reviewed old records, reviewed results, re-evaluated patient, considered differential, d/w patient, d/w family ED course: Results of brant's blood tests are reassuring, with a normal white blood cell count. Her liver function tests are normal except for elevated bilirubin (1.7); on the first 2 visits in August, patient had normal bilirubin, elevating to 2.0 preoperatively, and having decreased to 1.1 postoperatively. She is given 5 mg p.o. oxycodone, and she states she had missed her scheduled dose this morning due to being emergency department. Unfortunately, this did not provide any significant or noticeable relief; on reevaluation, patient continues to appear to be in mild to moderate pain and thus she is given 4 mg intravenous morphine (which had affected good pain control on previous ED visits). CT of the abdomen and pelvis is interpreted by radiologist as "none loculated fluid at the gallbladder fossa could represent hematoma/seroma although bilioma not entirely excluded)." I again reevaluated the patient to discuss the CT results with her, and she says the morphine did not help and, again, she appears to be in the same mild/moderate painful distress at times during this conversation. She is thus given another 4mg IV morphine. I contacted Dr. Zafar, on-call surgery for [facility], and discussed this case as well as the test results including the CT. Based on the CT findings and her ongoing pain which increasingly seems to be worse than it had been over the past 1 or 2 days, he will come to the ED to evaluate patient with a plan to admit her to [facility] for pain control and likely HIDA scan tomorrow when nuclear medicine study is available. I discussed this with the patient and she is comfortable with this plan. Departure - Departure Disposition: ED Place in Observation Clinical Impression: Abdominal pain Qualifiers: Abdominal location: right upper quadrant Qualified Code(s): R10.11 - Right upper quadrant pain Condition: Good
[2022-09-28] MEDS ORDERED: MORPHINE 2 MG/ML CARPUJECT IVP STA ×2 (04:53→07:50)
[2022-09-28] MEDS ORDERED: iohexoL-300 100 ML VIAL ONE (05:11)
[2022-09-28 05:13] LABS: BASOPHILS % (AUTO) 0.3 %; EOSINOPHILS % (AUTO) 0.2 %; HCT - HEMATOCRIT 34.8 % (37.0-47.0); HGB - HEMOGLOBIN 11.7 g/dL (12.0-16.0); LYMPHOCYTES # (AUTO) 0.9 10^3/uL (1.5-3.5); LYMPHOCYTES % (AUTO) 10.6 %; MEAN CORPUSCULAR HEMOGLOBIN 31.3 pg (27.0-31.0); MEAN CORPUSCULAR HGB CONC 33.6 g/dL (32.0-36.0); MEAN PLATELET VOLUME 9.3 fL (7.9-10.8); MONOCYTES # (AUTO) 0.9 10^3/uL (0.0-1.0); MONOCYTES % (AUTO) 10.7 %; NEUTROPHILS # (AUTO) 6.9 10^3/uL (1.5-6.6); NEUTROPHILS % (AUTO) 77.9 %; PLT - PLATELET COUNT 280 10^3/uL (130-450); RED BLOOD COUNT 3.74 10^6/uL (4.20-5.40); RED CELL DISTRIBUTION WIDTH 12.9 % (12.0-15.0); WHITE BLOOD COUNT 8.8 x10^3/uL (4.8-10.8)
[2022-09-28] MEDS ORDERED: MORPHINE 2 MG/ML CARPUJECT ONE (05:16)
[2022-09-28 05:31] LABS: ALBUMIN 3.3 g/dL (3.2-5.5); ALBUMIN/GLOBULIN RATIO 0.9 (1.0-2.2); BILIRUBIN,TOTAL 1.7 mg/dL (0.2-1.0); CALCIUM 8.8 mg/dL (8.5-10.3); CREATININE 0.7 mg/dL (0.4-1.0); POTASSIUM 4.4 mmol/L (3.5-5.0); TOTAL PROTEIN 6.8 g/dL (6.7-8.2)
[2022-09-28] MEDS ORDERED: iohexoL-300 100 ML VIAL IVP ONE (06:49)
--- NOTE | 2022-09-28 09:19 | CT Report ---
PROCEDURE: ABDOMEN/PELVIS W INDICATIONS: abdominal pain, post-op cholecystectomy CONTRAST: : 100 ML OMNI 300 TECHNIQUE: After the administration of IV contrast, 5 mm thick sections acquired from the diaphragms to the symp hysis. 5 mm thick coronal and sagittal reformats were acquired. For radiation dose reduction, the f ollowing was used: automated exposure control, adjustment of mA and/or kV according to patient size. COMPARISON: 09/22/2022 Correlation is made with recent MRCP, 09/24/2022. Correlation is also made with ultrasound, 09/15/2022. FINDINGS: Image quality: There is artifact associated with the metallic hardware. Lung bases and heart: There is a small left-sided pleural effusion, with overlying atelectasis. Liver: Unremarkable. Gallbladder and biliary tree: Recent cholecystectomy change can be seen. A small amount of free fluid can be seen within the cholecystectomy bed, which is considered to be within postoperative limits. N o abscess is seen. Spleen: Unremarkable. Pancreas: Unremarkable. Adrenals: Unremarkable. Kidneys and ureters: Unremarkable. Bowel and peritoneum: Mild thickening of the gastric antrum can be seen. No bowel distension. No path ologic free fluid. Diverticulosis can be seen, without sujatha findings of active diverticulitis. Lymph nodes: No central or retroperitoneal adenopathy. Vessels: Unremarkable. PELVIS Reproductive organs: Unremarkable. Bladder: Unremarkable. Lymph nodes: Unremarkable. Bones: No aggressive osseous abnormality. Right hip arthroplasty hardware can be seen. Other: A mild fat-containing periumbilical hernia is seen. IMPRESSION: Recent cholecystectomy, with minimal fluid within the postcholecystectomy bed. No abscess can be seen . If there is strong clinical concern for biliary leak, please consider a follow-up nuclear medicine HIDA scan for further evaluation. Small left-sided pleural effusion with overlying atelectasis noted. There is thickening of the gastric antrum. Please consider gastritis. Additional findings: Mammaplasty implants Trace fat-containing periumbilical hernia Diverticulosis, without findings of active diverticulitis. Note: No significant discrepancy from the preliminary report. Reviewed by: Jass Gonzales MD on 09/28/2022 8:17 AM [place] Approved by: Jass Gonzales MD on 09/28/2022 8:17 AM [place] Station ID: [id number]
--- NOTE | 2022-09-28 12:22 | HISTORY & PHYSICAL EXAMINATION ---
Chief Complaint - Chief Complaint Chief Complaint: diffuse abdominal pain History of Present Illness - History Obtained From Records Reviewed: yes History obtained from: pt Exam Limitations: none - History of Present Illness HPI Comment/Other: lap aranza for acute cholecystitis a few days ago. not improving. has diffuse abdominal pain with movement and pain when taking a deep breath. feels ok otherwise. no n/v History - Past Medical History Cardiovascular: reports: Murmur Neuro: reports: Other (Restless leg syndrome) GI: reports: GERD, GI bleed (NSAID related, approximately 5 years ago) Musculoskeletal: reports: Osteoarthritis - Past Surgical History Ortho: reports: Hip replacement (Right), Rotator cuff repair (Right) - POLST Patient has POLST: No Meds/Allgy - Home Medications Home Medications: Ambulatory Orders Medication Instructions Recorded Confirmed Gabapentin [Neurontin] 400 mg PO BID 09/21/22 09/23/22 Omeprazole 20 mg PO DAILY 09/21/22 09/23/22 Esomeprazole Magnesium [Nexium] 40 mg PO DAILY #30 cap 09/23/22 Famotidine [Pepcid] 20 mg PO BID #60 tablet 09/23/22 Sucralfate [Carafate] 1 gm PO ACHS #60 tablet 09/23/22 oxyCODONE [Roxicodone] 5 mg PO Q4H PRN #15 tablet 09/24/22 - Allergies Allergies/Adverse Reactions: Allergies Allergy/AdvReac Type Severity Reaction Status Date / Time Penicillins Allergy Hives Verified 09/28/22 04:06 Sulfa (Sulfonamide Allergy Hives Verified 09/28/22 04:06 Antibiotics) meloxicam AdvReac Unknown Verified 09/28/22 04:06 Review of Systems - Other Findings Other Findings: 10 pt ros as above otherwise unremarkable Exam - Vital Signs Vital Signs: Vital Signs x48h Temp Pulse Resp BP Pulse Ox 09/28/22 12:00 71 17 115/58 L 94 09/28/22 10:00 36.8 C 77 14 152/69 H 97 09/28/22 08:00 82 20 133/104 H 95 09/28/22 05:49 85 16 136/64 H 94 - Physical Exam General Appearance: positive: No acute distress, Alert Eyes Bilateral: positive: PERRL, EOMI, No scleral icterus ENT: positive: No signs of dehydration Neck: positive: No JVD, Trachea midline Respiratory: positive: No respiratory distress Cardiovascular: positive: Regular rate & rhythm Abdomen: positive: No distention, Other (diffuse mild tenderness incisions c/d/i no erythema) Neurologic/Psychiatric: positive: Oriented x3 Conclusion/Plan - Problem List (1) Abdominal pain Conclusion/Plan: abdominal pain following lap aranza consistent with bile leak. she is very stable otherwise. afebrile, normal vital signs. no n/v or abdominal distension ideally she should have a hida scan to confirm leak followed by ercp and stent. hida scan is not available at [facility] on the weekends and ERCP not available any day. in addition no hospital bed at [facility]. d/w pt. best option would be to transfer to higher level of care at this time. other option would be await hida scan on [facility] and then transfer for ercp when bile leak confirmed Qualifiers: Abdominal location: right upper quadrant Qualified Code(s): R10.11 - Right upper quadrant pain - Lab Results Fish Bones: 09/28/22 05:08 09/28/22 05:08 - Diagnostic Imaging Results Diagnostic Imaging Results: positive: Read independently (free fluid gallbladder fossa and over the righ lobe of the liver)
[2022-09-28] MEDS ORDERED: oxyCODONE 5 MG TABLET PO PRN (14:11)
[2022-09-28] MEDS ORDERED: ACETAMINOPHEN 325 MG TABLET PO PRN (14:11)
[2022-09-28] MEDS ORDERED: SODIUM CHLORIDE FLUSH 0.9% 10 ML SYRINGE IVP PRN (14:11)
[2022-09-28] MEDS ORDERED: ONDANSETRON ODT 4 MG TABLET TL PRN (14:11)
[2022-09-28] MEDS ORDERED: IBUPROFEN 400 MG TABLET PO PRN (14:11)
[2022-09-28] MEDS ORDERED: ONDANSETRON 4 MG/2 ML VIAL IVP PRN (14:11)
--- NOTE | 2022-09-28 14:11 | ED Physician Documentation ---
ED Addendum - Addendum Addendum: 09/28/22 14:09 Dr. Livingston came and saw the patient. His feeling is that she likely has a bile leak given her fluid on CT and degree of symptoms. However he is not sure and feels that further testing such as a HIDA scan would be more definitive. She may need transfer for ERCP ductal stent to treat the leak if that is the case. However he feels and needs to be defined before trying to transfer unless we could find an accepting facility to take her without a definite diagnosis. At this point he elected to admit the patient to the floor and wrote orders. He will order a HIDA or MRCP tomorrow.
[2022-09-28] MEDS: HYDROmorphone 0.5 MG/0.5 ML SYRINGE IVP PRN ×3 (14:59→21:25)
[2022-09-28] MEDS: D5.45NS W/20 MEQ KCL 1,000 ML IV SCH (15:14)
[2022-09-28] MEDS: SODIUM CHLORIDE FLUSH 0.9% 10 ML SYRINGE IVP SCH (17:03)
[2022-09-29] MEDS: HYDROmorphone 0.5 MG/0.5 ML SYRINGE IVP PRN ×3 (00:28→05:57)
[2022-09-29] MEDS: SODIUM CHLORIDE FLUSH 0.9% 10 ML SYRINGE IVP SCH ×2 (01:37→09:10)
[2022-09-29] MEDS: D5.45NS W/20 MEQ KCL 1,000 ML IV SCH (03:18)
--- NOTE | 2022-09-29 08:50 | Discharge Plan ---
Discharge Plan Problem Reviewed?: Yes Disposition: Home, Self Care Diet: Regular Activity Restrictions: No Restrictions Shower Restrictions: No Driving Restrictions: No Health Concerns: abdominal pain following gallbladder surgery Plan of Treatment: if not improving recommend you be seen at a hospital that can offer a higher level of care ie can offer HIDA scan to check for bile leak and possible ERCP procedure per gastroenterology Assessment: afebrile, normal wbc, tolerating diet Additional Instructions or Follow Up instructions: call the surgery office with any concerns [phone] No Smoking: If you smoke, Please STOP! Call for help.
--- NOTE | 2022-09-29 08:56 | DISCHARGE SUMMARY ---
Discharge Summary Admit Date: 09/28/22 Discharge Date: 09/29/22 Discharging Provider: toi dai md Code Status: Attempt Resuscitation Condition at Discharge: Good Discharge Disposition: 01 Home, Self Care Discharge Facility Name: [facility] - DIAGNOSES Admission Diagnoses: abdominal pain following lap aranza 09/24/2022 Discharge Diagnoses with Status of Each Condition: home in geed condition. tolerating diet, normal white blood cell count, afebrile. still with abdominal pain. if not improving recommend that you go to a hospital that can offer a higher level of care ie HIDA scan to check for bile leak. If bile leak present recommend gastroenterology consult for possible ERCP procedure - HPI History of Present Illness: lap aranza 09/24/2022 for cholecystitis. admitted 09/28/2022 with mild diffuse abdominal pain and ct scan showing small fluid around liver and gallbladder adán a. Labs normal except t bili 1.7. Plan was for HIDA scan at [facility] to check for bile leak. Unfortunately HIDA scan is no longer available and will not be available anytime soon on [facility]. I do not recommend surgery/ exploration of your abdomen. If not improving recommend further workup with HIDA scan and possible ERCP procedure. Unfortunately those are not available on [facility]. - HOSPITAL COURSE Hospital Course: afebrile, tolerating diet, no nausea, normal vital signs, good urine out put. normal wbc - ALLERGIES Allergies/Adverse Reactions: Allergies Allergy/AdvReac Type Severity Reaction Status Date / Time Penicillins Allergy Hives Verified 09/28/22 04:06 Sulfa (Sulfonamide Allergy Hives Verified 09/28/22 04:06 Antibiotics) meloxicam AdvReac Unknown Verified 09/28/22 04:06 - MEDICATIONS Home Medications: Ambulatory Orders Medication Instructions Recorded Confirmed Gabapentin [Neurontin] 400 mg PO BID 09/21/22 09/28/22 Omeprazole 20 mg PO DAILY 09/21/22 09/23/22 Esomeprazole Magnesium [Nexium] 40 mg PO DAILY #30 cap 09/23/22 Famotidine [Pepcid] 20 mg PO BID #60 tablet 09/23/22 Sucralfate [Carafate] 1 gm PO ACHS #60 tablet 09/23/22 oxyCODONE [Roxicodone] 5 mg PO Q4H PRN #15 tablet 09/24/22 - PHYSICAL EXAM AT DISCHARGE General Appearance: positive: No acute distress, Alert Eyes Bilateral: positive: No scleral icterus ENT: positive: No signs of dehydration Neck: positive: No JVD, Trachea midline Respiratory: positive: No respiratory distress Abdomen: positive: Other (minimal tenderness and distension. incisons clean dry intact without erythema) Neurologic/Psychiatric: positive: Oriented x3 - LABS Result Diagrams: 09/28/22 05:08 09/28/22 05:08 - FOLLOW UP Follow Up: call the surgery office with any concerns [phone]
[2022-09-29] MEDS ORDERED: PANTOPRAZOLE 40 MG TABLET PO SCH (09:00)
[2022-09-29 09:15] VITALS: BP 122/66
== END 2022-09-29 10:22 | disposition home or self-care (01) ==
LOC: ED 03:16 → MS2 14:11
PROVIDERS: ADMIT Surgery; ATTEND Surgery
DX: G89.18 Other acute postprocedural pain (principal); R10.11 Right upper quadrant pain; Z90.49 Acquired absence of other specified parts of digestive tract
CPT/HCPCS: 36415; 74177; 80053; 83690; 85025; 96374; 96375; 96376; 99285; A9270; G0378; J1170; Q9967